=== PATIENT | male | born 1960 | race Caucasian/White ===

== ENCOUNTER 2016-11-11 17:36 | Emergency (ER) | payer BC, OTHER ==
[~2016-11-11] VITALS: Ht 175.3 cm; Wt 106.2 kg
[~2016-11-11 17:36] MED LIST: ALBU1AER9 INH; ATOM25CA PO; DICL-201 PO; LOSA50TA6 PO; LPT10 PO; OXYC1TAB3 PO; STR10 PO; TGR200 PO; TRAZ100T29 PO; [UNRECOGNIZED DRUG - CODE] PO
[2016-11-11 17:38] VITALS: TEMP 36.6; Ht 175.3 cm; Wt 106.2 kg
--- NOTE | 2016-11-11 18:18 | DIAGNOSTIC IMAGING REPORT ---
LUMBAR SPINE 5 VIEWS HISTORY: Trauma. Pain. LBP/tailbone pain s/p fall COMPARISON: None. FINDINGS: There is no fracture. No subluxation. Disc spaces are preserved. IMPRESSION: No fracture or subluxation within the lumbar spine. Electronically signed by: Augusto Squires M.D. 11/11/2016 6:16 PM Dictated Date/Time: 11/11/2016 6:15 PM
--- NOTE | 2016-11-11 18:19 | DIAGNOSTIC IMAGING REPORT ---
SACRUM COCCYX MIN 2 VIEWS CLINICAL HISTORY: LBP/tailbone pain s/p fall trauma COMPARISON STUDY: None FINDINGS: Nondisplaced cortical fracture sacrococcygeal junction. All remaining osseous structures are unremarkable. IMPRESSION: Nondisplaced cortical fracture sacrococcygeal junction Electronically signed by: Augusto Squires M.D. 11/11/2016 6:17 PM Dictated Date/Time: 11/11/2016 6:16 PM
[2016-11-11] MEDS ORDERED: OXYC1TAB3 PO (18:54)
[2016-11-11 18:59] VITALS: BP 151/104; PULSE 99; O2SAT 94
[2016-11-11] MEDS ORDERED: OXYCODONE IR HOME PACK PO ONE (19:00)
--- NOTE | 2016-11-11 19:04 | EMERGENCY ROOM VISIT NOTE ---
History First contact with patient: 17:40 Chief Complaint: FALL Stated Complaint: FELL ON TAILBONE History of Present Illness The patient is a 56 year old male who presents to the Emergency Room with complaints of elbow pain after he slipped and fell onto his kitchen floor approximately one half hour prior to arrival. The patient rates his discomfort an 8 out of 10. He denies any pain radiating down the legs or into the abdomen. He denies any prior history of lumbar spine, sacral or coccyx fractures. He has not noticed any bladder/bowel incontinence, saddle anesthesias or noticeable lower extremity weakness. Review of Systems 10 system review was performed and was negative except for pertinent positives and negatives as indicated in history of present illness Past Medical/Surgical History Medical Problems: (1) Abdominal pain (2) ADHD (attention deficit hyperactivity disorder) (3) Back pain (4) Bipolar disorder (5) Hyperlipidemia, Unspecified (6) Hypertension Nos (7) Low back pain (8) Lumbago (9) Nausea vomiting and diarrhea (10) Pain, dental (11) PTSD (post-traumatic stress disorder) Family History Heart disease Hypertension Social History Smoking Status: Current Every Day Smoker Alcohol Use: heavy Drug Use: none Marital Status: single Housing Status: lives alone Occupation Status: employed Current/Historical Medications Scheduled Atorvastatin (Atorvastatin Calcium), 10 MG PO HS Carbamazepine (Carbamazepine), 400 MG PO HS Losartan Potassium (Cozaar), 50 MG PO HS Thiothixene (Thiothixene), 2 MG PO HS Trazodone Hcl (Trazodone), 100 MG PO HS Scheduled PRN Albuterol Sulfate (Proair Hfa), 2 PUFFS INH QID PRN for Shortness of Breath Diclofenac (Voltaren), 75 MG PO BID PRN for Pain Oxycodone Ir (Roxicodone Ir), 1-2 TAB PO Q4H PRN for Pain Allergies Coded Allergies: No Known Allergies (Unverified , 11/11/16) Physical Exam Vital Signs Date Time Temp Pulse Resp B/P Pulse Ox O2 Delivery O2 Flow Rate FiO2 11/11/16 17:38 36.6 97 20 156/91 97 Room Air Physical Exam CONSTITUTIONAL: Healthy and well nourished. Alert and oriented X 3 with positive affect. Patient appears in mild discomfort from pain. HEENT: Normocephalic, atraumatic. Pupils equal, round and reactive. No epistaxis, subconjunctival hemorrhage or hemotympanum. NECK: Full active range of motion without discomfort. RESPIRATORY: Clear to auscultation bilaterally with no wheezing, crackles, rhonchi or stridor. CARDIOVASCULAR: Regular rate and rhythm with no murmurs, rubs or gallops. GASTROINTESTINAL: Bowel sounds present in all quadrants. Soft and nontender to palpation. The patient refused digital rectal exam to palpate the coccyx. MUSCULOSKELETAL: Examination shows generalized lower back tenderness to palpation of the central lumbar spine, paraspinous muscles and SI joints. Pelvis stable with rock. Negative logroll. Negative straight leg raise. Ankle plantar/dorsiflexion strength is 5 out of 5 and symmetric bilaterally. INTEGUMENTARY: No rash or other significant dermatologic conditions noted. NEUROLOGIC: Cranial nerves II-XII grossly intact. No focal neurologic deficits noted. Lower extremity deep tendon reflexes are 2+ and symmetric bilaterally. Medical Decision & Procedures ER Provider Diagnostic Interpretation: My interpretation of lumbar spine x-rays does not show any acute fracture or spondylolisthesis. Radiologist report was also reviewed with concurrence. My interpretation of sacrum and coccyx x-rays shows a cortical fracture at the sacrococcygeal junction. Radiologist report is as follows: SACRUM COCCYX MIN 2 VIEWS CLINICAL HISTORY: LBP/tailbone pain s/p fall trauma COMPARISON STUDY: None FINDINGS: Nondisplaced cortical fracture sacrococcygeal junction. All remaining osseous structures are unremarkable. IMPRESSION: Nondisplaced cortical fracture sacrococcygeal junction ED Course Patient history and physical exam were performed. Nurse's notes were reviewed. Signs were reviewed, showing an elevated blood pressure 156/91. The patient had gone to x-ray prior to my exam as I was called to see one of my prior patients. X-rays of the lumbar spine, sacrum and coccyx shows a sacrococcygeal fracture. Review of prior medical records shows that the patient is currently on a no narcotic prescription list from last year. I also reviewed the [place] Prescription Drug Monitoring Program, showing that the patient has also recently been in pain management under Dr. Ruano in [place]. It appears that he has been receiving prescriptions for OxyContin 15 mg and oxycodone 10 mg tablets , with his last prescription refill on 09/04/16. Without telling the patient about this prescription history, I ask what he is currently taking at home for his chronic pain. He reports that he no longer goes to the pain clinic in [place] because he lost his job at [employer], and cannot afford his visits and prescriptions from the pain clinic. He reports that he has an appointment this coming Sunday with his family doctor. He is requesting medication until he can discuss pain management with his family doctor at his appointment. Because the patient does have an acute fracture, I will provide a one-time home pack and prescription for OxyIR 5 mg, dispensed #24 with no refills. The patient is aware that he is currently on a no prescription treatment plan, and will seek further pain management from his PCP. The patient reports that he also has diclofenac at home that he can also take. He was encouraged to also apply ice to the lower back and pelvis. Avoid sitting for long periods of time. The patient was happy with plan of care, voiced understanding of all discharge instructions, refused any analgesics prior to discharge, and rated his pain a 7 out of 10. [facility] Drug Monitoring Program Search Results: patient reviewed within database, see additional documentation Impression Primary Impression: Sacrococcygeal fracture Additional Impression: Fall from slipping on slippery surface Departure Information Prescriptions Oxycodone Ir (Roxicodone Ir) 5 Mg Tab 1-2 TAB PO Q4H Y for Pain, #24 TAB For Initial Treatment Prov: Gutierrez Koo PA 11/11/16 Referrals Luz Smallwood C.R.N.PRhonda (PCP) Patient Instructions My [facility] Problem Qualifiers Additional Impression: Fall from slipping on slippery surface Encounter type: initial encounter Qualified Codes: W01.0XXA - Fall on same level from slipping, tripping and stumbling without subsequent striking against object, initial encounter
[2017-04-05] MEDS ORDERED: CARB200T PO (08:41)
[2017-04-05] MEDS ORDERED: OXYC-57 PO (08:41)
[2017-04-05] MEDS ORDERED: ALBU18002 INH (08:41)
[2017-04-05] MEDS ORDERED: FLUO0.0121 TOP (08:41)
[2017-04-05] MEDS ORDERED: METH5TAB85 PO (08:41)
[2017-04-05] MEDS ORDERED: HYDR25TA4 PO (08:41)
[2017-04-05] MEDS ORDERED: ZOLP5TAB6 PO (08:41)
== END 2016-11-11 19:06 | disposition home or self-care (01) ==
LOC: C.EDB 17:36 → C.EDD 19:06
DX: S32.10XA Unspecified fracture of sacrum, initial encounter for closed fracture (principal); S32.2XXA Fracture of coccyx, initial encounter for closed fracture; W01.0XXA Fall on same level from slipping, tripping and stumbling without subsequent striking against object, initial encounter; Y92.010 Kitchen of single-family (private) house as the place of occurrence of the external cause; E78.5 Hyperlipidemia, unspecified; I10 Essential (primary) hypertension; F90.9 Attention-deficit hyperactivity disorder, unspecified type; F31.9 Bipolar disorder, unspecified; F17.200 Nicotine dependence, unspecified, uncomplicated; Z79.899 Other long term (current) drug therapy; Z82.49 Family history of ischemic heart disease and other diseases of the circulatory system

== ENCOUNTER → 2017-04-05 | Outpatient (CLI) | payer OTHER ==
[~2017-04-05] VITALS: Ht 175.3 cm; Wt 129.7 kg
[~2017-04-05] MED LIST changes: +ALBU18002 INH; -ATOM25CA PO; +AZITTAB PO; +CARB200T PO; +FLUO0.0121 TOP; +HYDR25TA4 PO; +LACTATED RINGER'S 1000ML 1,000 ML IV SCH; +METH5TAB85 PO; +OXYC-57 PO; -STR10 PO; +ZOLP5TAB6 PO
[2017-04-05 08:41] VITALS: Ht 175.3 cm; Wt 129.7 kg
--- NOTE | 2017-04-05 09:12 | PAT Medication Instructions ---
Service Date Apr 05, 2017. Current Home Medication List Albuterol Sulfate (Proair Respiclick), 2 PUFF INH Q4 PRN for SOB/Wheezing Atorvastatin (Atorvastatin Calcium), 10 MG PO HS Carbamazepine (Tegretol), 200 MG PO BID Diclofenac (Voltaren), 75 MG PO BID PRN for Pain Fluocinolone Acetonide (Madeline-Smoothe/Fs Scalp), 1 DOSE TOP UD PRN for DERMATITIS Hydrochlorothiazide (Hctz), 25 MG PO QAM PRN for EDEMA Losartan Potassium (Cozaar), 50 MG PO HS Methamphetamine Hcl (Methamphetamine Hcl), 5 MG PO QID Oxycodone/Acetaminophen 5MG/325MG (Percocet 5MG/325MG), 1-2 TABLETS PO Q4H PRN for Pain Thiothixene (Thiothixene), 2 MG PO HS Trazodone Hcl (Trazodone), 100 MG PO HS Zolpidem Tartrate (Zolpidem Tartrate), 1 TAB PO HS PRN for Insomnia Medication Instructions For Your Scheduled Surgery - Hold the following medications 24 hours prior to surgery: Losartan Potassium (Cozaar), 50 MG PO HS Fluocinolone Acetonide (Madeline-Smoothe/Fs Scalp), 1 DOSE TOP UD PRN for DERMATITIS - Hold the following medications the morning of surgery: Methamphetamine Hcl (Methamphetamine Hcl), 5 MG PO QID Hydrochlorothiazide (Hctz), 25 MG PO QAM PRN for EDEMA Diclofenac (Voltaren), 75 MG PO BID PRN for Pain (otherwise okay to continue per surgeon) - Take the following medications the morning of surgery with a sip of water OTHERWISE NOTHING TO EAT OR DRINK AFTER MIDNIGHT: Oxycodone/Acetaminophen 5MG/325MG (Percocet 5MG/325MG), 1-2 TABLETS PO Q4H PRN for Pain (may take if needed up to 4 hours prior to surgery) Carbamazepine (Tegretol), 200 MG PO BID Albuterol Sulfate (Proair Respiclick), 2 PUFF INH Q4 PRN for SOB/Wheezing (use if needed; BRING TO HOSPITAL) - Take the following medications as scheduled the night before surgery: Thiothixene (Thiothixene), 2 MG PO HS Trazodone Hcl (Trazodone), 100 MG PO HS Zolpidem Tartrate (Zolpidem Tartrate), 1 TAB PO HS PRN for Insomnia Methamphetamine Hcl (Methamphetamine Hcl), 5 MG PO QID Oxycodone/Acetaminophen 5MG/325MG (Percocet 5MG/325MG), 1-2 TABLETS PO Q4H PRN for Pain Carbamazepine (Tegretol), 200 MG PO BID Atorvastatin (Atorvastatin Calcium), 10 MG PO HS Albuterol Sulfate (Proair Respiclick), 2 PUFF INH Q4 PRN for SOB/Wheezing If you have any questions please call us at [phone] or [phone] or [phone]
--- NOTE | 2017-04-05 10:05 | DIAGNOSTIC IMAGING REPORT ---
CHEST 2 VIEWS ROUTINE HISTORY: Preop. COMPARISON: Chest 06/27/2012. FINDINGS: The lungs are clear. Cardiac silhouette is top normal in size. No pleural effusions. No pneumothorax. IMPRESSION: No significant change compared to the prior study. No acute process. Electronically signed by: Cristhian Mosqueda M.D. 04/05/2017 10:04 AM Dictated Date/Time: 04/05/2017 9:59 AM
[2017-04-05 10:41] LABS: CALCIUM 9.7 mg/dl (8.5-10.1); CREATININE 1.1 mg/dl (0.60-1.40); POTASSIUM 3.6 mmol/L (3.5-5.1)
[2017-04-05 10:42] LABS: COMPLETE YES; EOS % 2.9 %; IG% 0.2 %; LYMPH % 21.4 %; LYMPH ABS # 1.42 K/uL (1.2-3.4); MEAN CELL VOLUME 96.2 fL (80-100); MEAN CORPUSCULAR HEMOGLOBIN 33.5 pg (25-34); MEAN CORPUSCULAR HGB CONC 34.8 g/dl (32-36); MEAN PLATELET VOLUME 10.2 fL (7.4-10.4); MONO % 7.7 %; NEUT % 67.8 %; PLATELET COUNT 212 K/uL (130-400); RED BLOOD COUNT 4.78 M/uL (4.7-6.1); WHITE BLOOD COUNT 6.65 K/uL (4.8-10.8)
== END | disposition home or self-care (01) ==
LOC: C.LAB 08:00 → EDSTATUS 04-17 11:00
PROVIDERS: ATTEND Surgery
DX: Z01.812 Encounter for preprocedural laboratory examination (principal); Z01.810 Encounter for preprocedural cardiovascular examination; D17.0 Benign lipomatous neoplasm of skin and subcutaneous tissue of head, face and neck

== ENCOUNTER 2017-04-16 11:04 | Emergency (ER) | payer OTHER ==
[~2017-04-16 11:04] MED LIST changes: -ALBU1AER9 INH; -AZITTAB PO; -LACTATED RINGER'S 1000ML 1,000 ML IV SCH; -OXYC1TAB3 PO; -TGR200 PO
[2017-04-16 11:27] VITALS: TEMP 37.3
[2017-04-16] MEDS ORDERED: ALBUT/IPRATROP 3MG/0.5MG NEB 3 ML VIAL INH STA (12:32)
--- NOTE | 2017-04-16 12:32 | EMERGENCY ROOM VISIT NOTE ---
History Report prepared by Merle: Joycelyn Duran Under the Supervision of: Dr. Vernon Torres M.D. First contact with patient: 12:11 Chief Complaint: RESPIRATORY PROBLEMS Stated Complaint: FLU Nursing Triage Summary: started sunday, dry cough, now has aching and congestion. non productive cough History of Present Illness The patient is a 57 year old male who presents to the Emergency Room with complaints of a persistent cough that began two days ago. The patient states that he first began coughing on Sunday noting that it is nonproductive. He additionally reports congestion and aches in his diaphragm and flanks. The patient states that he is a smoker and states that his cough is worsened with smoking. He states that he has tried using his inhaler at home without relief of his symptoms. The patient is unsure if he has had a fever. He denies any recent antibiotic use. The patient denies any recent fall or injury. He declines any IVs or labwork at this time. Source of History: patient Onset: two days ago Position: other (global) Quality: other (cough) Timing: other (persistent) Note: Associated Symptoms: aches in his diaphragm and flanks, congestion Review of Systems See HPI for pertinent positives & negatives. A total of 10 systems reviewed and were otherwise negative. Past Medical & Surgical Medical Problems: (1) Abdominal pain (2) ADHD (attention deficit hyperactivity disorder) (3) Back pain (4) Bipolar disorder (5) Hyperlipidemia, Unspecified (6) Hypertension Nos (7) Low back pain (8) Lumbago (9) Nausea vomiting and diarrhea (10) Pain, dental (11) PTSD (post-traumatic stress disorder) Family History Heart disease Hypertension Social History Smoking Status: Current Every Day Smoker Alcohol Use: heavy Drug Use: none Marital Status: single Housing Status: lives alone Occupation Status: employed Current/Historical Medications Scheduled Atorvastatin (Atorvastatin Calcium), 10 MG PO HS Azithromycin (Zithromax Z-Alden), 1 PKT PO UD Carbamazepine (Tegretol), 200 MG PO BID Losartan Potassium (Cozaar), 50 MG PO HS Methamphetamine Hcl (Methamphetamine Hcl), 5 MG PO QID Thiothixene (Thiothixene), 2 MG PO HS Trazodone Hcl (Trazodone), 100 MG PO HS Scheduled PRN Albuterol Sulfate (Proair Respiclick), 2 PUFF INH Q4 PRN for SOB/Wheezing Diclofenac (Voltaren), 75 MG PO BID PRN for Pain Fluocinolone Acetonide ([place]wood-Smoothe/Fs Scalp), 1 DOSE TOP UD PRN for DERMATITIS Hydrochlorothiazide (Hctz), 25 MG PO QAM PRN for EDEMA Oxycodone/Acetaminophen 5MG/325MG (Percocet 5MG/325MG), 1-2 TABLETS PO Q4H PRN for Pain Zolpidem Tartrate (Zolpidem Tartrate), 1 TAB PO HS PRN for Insomnia Allergies Coded Allergies: No Known Allergies (Unverified , 04/16/17) Physical Exam Vital Signs Date Time Temp Pulse Resp B/P (MAP) Pulse Ox O2 Delivery O2 Flow Rate FiO2 04/16/17 13:26 113 23 139/75 92 Room Air 04/16/17 11:50 Room Air 04/16/17 11:27 37.3 112 28 142/83 90 Room Air Physical Exam GENERAL: Patient is well appearing and in no acute distress. HEENT: No acute trauma, normocephalic atraumatic, mucous membranes moist, no nasal congestion, no scleral icterus. NECK: No stridor, no adenopathy, no meningismus, trachea is midline. LUNGS: Minimal dyspnea. Loud wheezing throughout on expiration. Sounds equal bilaterally. No rhonchi. HEART: Regular rate and rhythm. No murmurs, rubs, gallops appreciated. ABDOMEN: Soft, nontender, bowel sounds positive, no masses appreciated, no peritonitis. BACK: No midline tenderness, no CVA tenderness EXTREMITIES: Normal motion all extremities, no cyanosis, no edema. NEUROLOGIC: Alert and oriented, no acute motor or sensory deficits, no focal weakness, cranial nerves grossly intact. SKIN: No rash, no jaundice, no diaphoresis. Medical Decision & Procedures ER Provider Diagnostic Interpretation: X ray results are stated below per my interpretation and the radiologist's interpretation. CHEST 2 VIEWS ROUTINE HISTORY: 57 years-old Male cough acute cough COMPARISON: Chest radiograph 04/05/2017 TECHNIQUE: PA and lateral views of the chest FINDINGS: Cardiac silhouette is mildly enlarged. No pneumothorax, pleural effusion or focal airspace consolidation. No overt pulmonary edema. Bones appear grossly intact. IMPRESSION: No acute cardiopulmonary process. The above report was generated using voice recognition software. It may contain grammatical, syntax or spelling errors. Electronically signed by: Jorge Cowan M.D. 04/16/2017 12:32 PM Dictated Date/Time: 04/16/2017 12:31 PM Laboratory Results Test 04/16/17 12:20 Influenza Type A Antigen Neg for Influ A (NEG) Influenza Type B Antigen Neg for Influ B (NEG) Laboratory results as reviewed by me. Medications Administered Medications (Trade) Dose Ordered Sig/García Route Start Time Stop Time Status Last Admin Dose Admin Albuterol/ Ipratropium (Duoneb) 6 ml NOW STAT INH 04/16/17 12:32 04/16/17 12:33 DC 04/16/17 12:45 6 ML Azithromycin (Zithromax Tab) 500 mg NOW STAT PO 04/16/17 12:38 04/16/17 12:39 DC 04/16/17 12:45 500 MG Hydrocodone Bit/ Homatropine Methylb (Hycodan Elix Homepack 5/1.5MG/ 5ML) 1 homepack UD ONCE PO 04/16/17 12:45 04/16/17 12:46 DC 04/16/17 12:45 1 HOMEPACK ED Course 1227: The patient was evaluated in room C1B. A complete history and physical exam was performed. 1232: Ordered DuoNeb 6 ml INH. 1238: Ordered Azithromycin 500 mg PO. 1245: Ordered Hydrocodone Bit/Homatropine Methyl B 1 homepack PO. 1310: I reevaluated the patient and he is resting comfortably. I discussed the exam findings with him and I discussed the treatment plan. He verbalized complete understanding and agreement. He is ready to go home. Medical Decision Differential: Infectious, Reactive Airway Disease, Pneumonia, Pneumothorax, COPD , CHF, ACS, Pulmonary Embolism, MSK, GI, Dissection, amongst other etiologies entertained. 57 yr old male arrives with complaint of shortness of breath over the last few days. Clearly directing his own care/treatment. Clearly is with diffuse wheezing. With his asthma and smoking history and normal CXR this is clearly bronchitis. Given neb with vast improvement. He denies labs, declines steroids , declines further testing. Clearly has uncomfortable cough thus I gave him hycodan with understanding its restriction and after reviewing PDMP. I made it clear to him that he may worsen especially given his mildly low O2 sats to begin with. He does not have risk factors for PE and with other cause more likely I do not feel this is PE, though can not do Dimer as he declines labs. [place] Drug Monitoring Program Search Results: patient reviewed within database, no issues identified Medication Reconcilliation Current Medication List: was personally reviewed by me Impression Primary Impression: Bronchitis Scribe Attestation The scribe's documentation has been prepared under my direction and personally reviewed by me in its entirety. I confirm that the note above accurately reflects all work, treatment, procedures, and medical decision making performed by me. Departure Information Dispostion Home / Self-Care Prescriptions Azithromycin (ZITHROMAX Z-ALDEN) 250 Mg Tab 1 PKT PO UD, #1 PKT Prov: Vernon Torres M.D. 04/16/17 Forms HOME CARE DOCUMENTATION FORM, IMPORTANT VISIT INFORMATION Patient Instructions My [facility] Additional Instructions Your lung sounds were quite poor. There is a possibility this will not improve without steroids. Return if worsening breathing, chest pain, passing out, vomiting or other concerns. We are always here to help. Rest and avoid exertion over the next few days. Please follow up with your primary care provider in the next few days for a recheck. You have received a narcotic cough medication. These medications may cause drowsiness and should not be used with other sedative medications. Do not drive , drink alcohol, perform dangerous activities, nor make important decisions after taking these medications. [facility] use or inappropriate use may lead to addiction.
[2017-04-16] MEDS ORDERED: AZITHROMYCIN 250 MG TAB PO STA (12:38)
[2017-04-16] MEDS ORDERED: HYCODAN 60ML BOTTLE HOMEPACK PO ONE (12:45)
[2017-04-16] MEDS ORDERED: AZITTAB PO (13:12)
[2017-04-16 13:26] VITALS: BP 139/75; PULSE 113; O2SAT 92
== END 2017-04-16 13:27 | disposition home or self-care (01) ==
LOC: C.EDB 11:05 → C.EDC 13:27
DX: J40 Bronchitis, not specified as acute or chronic (principal); I10 Essential (primary) hypertension; F31.9 Bipolar disorder, unspecified; E78.5 Hyperlipidemia, unspecified; F90.9 Attention-deficit hyperactivity disorder, unspecified type; F17.200 Nicotine dependence, unspecified, uncomplicated; Z79.899 Other long term (current) drug therapy; Z82.49 Family history of ischemic heart disease and other diseases of the circulatory system

== ENCOUNTER 2017-09-05 19:21 | Emergency (ER) | payer OTHER ==
[2017-09-05 19:30] VITALS: TEMP 36.7; Ht 175.3 cm
[2017-09-05] MEDS ORDERED: XYLOCAINE 1%/SOD BICARB 20 ML VIAL INFIL STA (19:43)
[2017-09-05] MEDS ORDERED: OXYCODONE HCL IR 5 MG TAB (IMMEDIATE RELEASE) PO STA (20:17)
[2017-09-05] MEDS ORDERED: NZRSHM PO (21:29)
[2017-09-05 21:34] VITALS: BP 159/111; PULSE 75; O2SAT 95
--- NOTE | 2017-09-05 21:42 | DIAGNOSTIC IMAGING REPORT ---
RIGHT SECOND TOE 3 VIEWS CLINICAL HISTORY: Crushing injury. FINDINGS: 3 views of the right second toe are obtained. No prior studies are available for comparison at the time of dictation. The skeletal structures are well mineralized. There is a comminuted fracture through the tuft of the second distal phalanx with mildly distracted fragments. Overlying soft tissue edema is noted. No additional fracture is seen. The second metatarsophalangeal and interphalangeal joints are preserved. IMPRESSION: Comminuted fracture through the tuft of the second distal phalanx with distracted fragments. Electronically signed by: Yakov Velásquez M.D. 09/05/2017 9:41 PM Dictated Date/Time: 09/05/2017 9:40 PM
[2017-09-05] MEDS ORDERED: OXYCODONE IR HOME PACK PO STA (21:49)
[2017-09-05] MEDS ORDERED: CEPH500C PO (21:52)
[2017-09-05] MEDS ORDERED: OXYC1TAB3 PO (21:52)
[2017-09-05] MEDS ORDERED: CEPHALEXIN MONOHYDRATE 250 MG CAP PO STA (21:53)
--- NOTE | 2017-09-05 21:57 | EMERGENCY ROOM VISIT NOTE ---
ED Visit Note First contact with patient: 19:33 Chief Complaint: "Smashed toe" History of Present Illness: This patient is a 57-year-old male who presents to the Emergency Department via private vehicle for evaluation of their right second digit toe laceration. Patient sustained the laceration while in [employer] [place], when he sustained an injury of which a heavy object fell onto the right second toe just prior to arrival. He notes that the eminence was called in the region was wrapped. Once he got home the pain persisted which he now rates as a 9/10 and throbbing in nature. He does not think his tetanus is up-to-date. They report a moderate amount of bleeding initially. They deny any numbness or tingling into the distal extremity. Medications: As noted below Allergies: None PMH: No pertinent SHx: Patient lives locally. ROS: All pertinent positive and negative review of systems are appropriately documented in the History of Present Illness. Physical Exam: VITAL SIGNS - Vital signs and nursing notes were reviewed. Stable. Hypertensive. GENERAL -57-year-old male appearing his stated age who is in no acute distress. Communicates well with provider and answers questions appropriately. SKIN - There is a 1 cm long laceration noted just behind the cuticle on the R 2nd toe and a 0.3 cm laceration at the L medial border of the R 2nd toe. The edges gape apart with traction. No foreign bodies appreciated. Upon further examination there are no deep structures including vessel, tendon, or bony structures appreciated. There is minimal active bleeding noted. MUSCULOSKELETAL - Laceration as described above. +5/5 strength appreciated of the affected digit. Full range of motion of the affected digit. NEUROLOGIC - Spinothalamic tract was found to be intact with ability to discriminate sharp versus dull sensation. No sensory defects of the dorsal column were appreciated utilizing light touch for evaluation. VASCULAR - Capillary refill was brisk. IMAGING: RIGHT SECOND TOE 3 VIEWS CLINICAL HISTORY: Crushing injury. FINDINGS: 3 views of the right second toe are obtained. No prior studies are available for comparison at the time of dictation. The skeletal structures are well mineralized. There is a comminuted fracture through the tuft of the second distal phalanx with mildly distracted fragments. Overlying soft tissue edema is noted. No additional fracture is seen. The second metatarsophalangeal and interphalangeal joints are preserved. IMPRESSION: Comminuted fracture through the tuft of the second distal phalanx with distracted fragments. Electronically signed by: Yakov Velásquez M.D. 09/05/2017 9:41 PM Dictated Date/Time: 09/05/2017 9:40 PM ED Course: Patient was seen and evaluated by myself. Risks and benefits of performing primary wound closure versus no repair were discussed with the patient who verbalizes understanding. Verbal consent was obtained prior to performing the procedure. 4 cc of 1% buffered lidocaine was used to perform a digital block of the right second toe digit. The wound was cleansed and prepped in the typical sterile fashion utilizing normal saline and Betadine. The wound was sterilely draped. Once proper anesthetization was established, the wound was further examined and demonstrated no deep involvement however the x-ray that was obtained does reveal a fracture around this region. There is either a small open fracture which is not appreciable on exam or there is a soft tissue injury with deeper fracture. For this region, I did use a Pulsavac irrigation system to thoroughly irrigate the system with greater than 1 L of normal saline. This was also with Betadine. Patient tolerated this very well. I do believe that tacking the nail back down at the cuticle region to help better align the toe would be best. The wound was copiously irrigated with normal saline and Betadine. The wound was closed using 3 simple, 5-0 nylon sutures with the wound edges being well approximated. Patient tolerated the procedure well. No complications were met. The wound was cleansed and dressed with a Xeroform bulky dressing pending follow-up with orthopedics. He was given p.o. Keflex here, as well as oxycodone and a small prescription for home secondary to the pain. No red flags in the [place] drug monitoring system patient received their Adacel vaccination. Patient educated on worrisome symptoms for return visit to the Emergency Department. Patient discharged to home in good condition. In the evaluation and treatment of this patient, the following differential diagnoses were considered: Toe Fracture, Toe Sprain, Turf Toe, Gout. Problem List Medical Problems: (1) Abdominal pain Status: Resolved (2) ADHD (attention deficit hyperactivity disorder) Status: Chronic (3) Back pain Status: Resolved (4) Bipolar disorder Status: Chronic (5) Hyperlipidemia, Unspecified Status: Chronic (6) Hypertension Nos Status: Chronic (7) Low back pain Status: Resolved (8) Lumbago Status: Chronic (9) Nausea vomiting and diarrhea Status: Resolved (10) Pain, dental Status: Resolved (11) PTSD (post-traumatic stress disorder) Status: Chronic Current/Historical Medications Scheduled Atorvastatin (Lipitor), 10 MG PO HS Carbamazepine (Tegretol), 200 MG PO BID Cephalexin Monohydrate (Keflex), 500 MG PO TID Ketoconazole (Ketoconazole), 1 APPLN PO UD Losartan Potassium (Cozaar), 50 MG PO HS Methamphetamine Hcl (Methamphetamine Hcl), 5 MG PO QID Thiothixene (Thiothixene), 2 MG PO HS Trazodone Hcl (Trazodone), 100 MG PO HS Scheduled PRN Albuterol Sulfate (Proair Respiclick), 2 PUFF INH Q4 PRN for SOB/Wheezing Diclofenac (Voltaren), 75 MG PO BID PRN for Pain Fluocinolone Acetonide (Premont-Smoothe/Fs Scalp), 1 DOSE TOP UD PRN for DERMATITIS Hydrochlorothiazide (Hctz), 25 MG PO QAM PRN for EDEMA Oxycodone Ir (Roxicodone Ir), 1-2 TAB PO Q6 PRN for Pain Oxycodone/Acetaminophen 5MG/325MG (Percocet 5MG/325MG), 1-2 TABLETS PO Q4H PRN for Pain Zolpidem Tartrate (Zolpidem Tartrate), 1 TAB PO HS PRN for Insomnia Allergies Coded Allergies: No Known Allergies (Unverified , 04/16/17) Vital Signs Date Time Temp Pulse Resp B/P (MAP) Pulse Ox O2 Delivery O2 Flow Rate FiO2 09/05/17 21:34 75 18 159/111 95 Room Air 09/05/17 19:30 36.7 92 20 179/118 96 Room Air Medications Administered Medications (Trade) Dose Ordered Sig/García Route Start Time Stop Time Status Last Admin Dose Admin Oxycodone HCl (Roxicodone Immediate Rel Tab) 5 mg NOW STAT PO 09/05/17 20:17 09/05/17 20:18 DC 09/05/17 20:41 5 MG Oxycodone HCl (Roxicodone Immediate Rel 5MG Home Pack) 1 homepack UD STAT PO 09/05/17 21:49 09/05/17 21:51 DC 09/05/17 21:53 1 HOMEPACK Cephalexin Monohydrate (Keflex Cap) 500 mg NOW STAT PO 09/05/17 21:53 09/05/17 21:55 DC 09/05/17 22:02 500 MG Diphtheria/ Pertussis/Tetanus Vacc (Adacel Inj) 0.5 ml ONCE ONCE IM. 09/05/17 22:00 09/05/17 22:01 DC 09/05/17 22:02 0.5 ML Departure Information Dispostion Home / Self-Care Condition GOOD Prescriptions Cephalexin Monohydrate (Keflex) 500 Mg Cap 500 MG PO TID for 7 Days, #21 CAP Prov: Omkar Tse PA-C 09/05/17 Oxycodone Ir (Roxicodone Ir) 5 Mg Tab 1-2 TAB PO Q6 Y for Pain, #10 TAB For Initial Treatment Prov: Omkar Tse PA-C 09/05/17 Referrals No Doctor, Assigned (PCP) Ervin Barrow D.O. Patient Instructions My [facility] Additional Instructions Discharge Instructions: You have received 3 sutures on your toe which is fractures. These sutures are NOT dissolvable and WILL need to be removed by a health care provider in 14 days. You can return to the Emergency Department or contact your Primary Care Provider to have the sutures removed. Keflex 500 mg every 8 hours for 7 days to help prevent infection of your toe wound. Oxycodone immediate release 1 tablet every 6 hours for pain. This is only for severe pain. Please no driving with this. Please be advised other medications that you take can make the effects of this increased. Please start with 1 tablet and identify how your pain and response is to this medication. Please wear the splint for comfort until the sutures are removed. Please call orthopedics first thing tomorrow morning. It is Dr. Barrow. This is a scheduled follow-up as soon as possible for your fracture and laceration. Proper wound care is essential for adequate wound healing and infection prevention. You can shower and clean the wound with soap and water. Do not scour over the wound, pat dry with a towel. Do not submerse the wound (i.e. bathe or dish wash) until the sutures have been removed. You can use an antibiotic ointment with a dressing over the wound for the next 3-4 days ( yellow gauze and wrap) use crutches and splint until seen by orthopedics. After this time you may leave the wound dry and open to the air. If crust develops over the wound you can use a Q-tip to apply a 1:1 peroxide:water solution to clean the wound. Look for signs of infection of the wound including: increased pain, swelling, foul discharge, streaking, or increased temperature. If any of these are noticed you should return to the Emergency Department for further assessment and treatment. As with any laceration you may have received nerve damage to the surrounding tissues. This damage may or may not be permanent. You should keep the area covered with sunscreen for the first 6 months to 1 year when at risk for exposure to help minimize scarring. You can also use scar reducing creams or Vitamin E oil to help minimize scarring. For pain control, you can use the following [id number] medicines: - Regular strength (325mg/tab) Tylenol (acetaminophen) 2 tabs every 4-6 hours as needed. Do not exceed 12 tablets in a 24 hour period. Avoid taking more than 3 grams (3000 mg) of Tylenol per day. This includes any other sources of acetaminophen you may take on a regular basis. - Regular strength (200 mg/tab) Advil (ibuprofen) 1-2 tabs every 4-6 hours as needed. Do not exceed a dose of 3200 mg per day. Return to the emergency department if your symptoms worsen despite treatment course outlined above.
[2017-09-05] MEDS ORDERED: DIPHTHERIA/TETANUS/PERTUSSIS 0.5 ML SYR/VIAL IM. ONE (22:00)
== END 2017-09-05 22:04 | disposition home or self-care (01) ==
LOC: C.EDB 19:22 → C.EDD 22:04
DX: S92.531A Displaced fracture of distal phalanx of right lesser toe(s), initial encounter for closed fracture (principal); S91.114A Laceration without foreign body of right lesser toe(s) without damage to nail, initial encounter; W20.8XXA Other cause of strike by thrown, projected or falling object, initial encounter; Y92.513 Shop (commercial) as the place of occurrence of the external cause; I10 Essential (primary) hypertension; F31.9 Bipolar disorder, unspecified; F90.9 Attention-deficit hyperactivity disorder, unspecified type; Z79.899 Other long term (current) drug therapy

== ENCOUNTER 2018-02-09 10:22 | Emergency (ER) | payer OTHER ==
[~2018-02-09] VITALS: Ht 175.3 cm; Wt 133.6 kg
[~2018-02-09 10:22] MED LIST changes: +NZRSHM PO; +OXYC-90 PO
[2018-02-09 10:33] VITALS: TEMP 36.9; Ht 175.3 cm; Wt 133.6 kg
[2018-02-09] MEDS ORDERED: KETOROLAC TROMETHAMINE 60 MG/2 ML VIAL IM STA (11:24)
[2018-02-09] MEDS ORDERED: MELO-83 PO (11:34)
[2018-02-09 11:43] VITALS: BP 163/91; PULSE 85; O2SAT 95
--- NOTE | 2018-02-09 17:35 | EMERGENCY ROOM VISIT NOTE ---
ED Visit Note First contact with patient: 10:57 CHIEF COMPLAINT: Left hand pain This 57-year-old white male patient complains of moderate constant left hand pain that developed last night while opening a bottle. He states it was difficult to open and he believes something tore in his palm. He was at the [facility]. He states the pain continues. He is requesting pain medication. He did try a tablet of diclofenac last night without improvement. No other treatment. No prior history of hand injury. The pain is worse with any movement of the fingers. No laceration, no numbness or tingling. No other injury. Left hand dominant. REVIEW OF SYSTEM: HEENT: No dizziness, visual problems, hearing loss, or tinnitus. There is no difficulty swallowing and no oral lesions are present. PULMONARY: No cough, shortness of breath, sputum production or hemoptysis. CARDIOVASCULAR: No chest pain, palpitations, shortness of breath or peripheral edema. GASTROINTESTINAL: No diarrhea, constipation, nausea, vomiting, or abdominal pain. GENITOURINARY: No dysuria, frequency, urgency or nocturia. NEUROLOGIC: No weakness, muscle tenderness. No history of chronic headaches. MUSCULOSKELETAL: No history of joint tenderness/swelling. Positive history of arthritis and arthralgias. SKIN: No rashes or lesions. PSYCHIATRIC: Positive history of depression, bipolar disorder, PTSD, and ADHD. ENDOCRINE: No history of diabetes, thyroid disorders, or abnormal hair growth. PMH: Significant for depression, ADHD, bipolar disorder, PTSD. Hypertension, elevated cholesterol, GERD, chronic back pain. Family history: Noncontributory. SOCIAL HISTORY: Patient lives at home. Current medications: Reviewed and filed in patient's chart Allergies: NKDA PHYSICAL EXAM: Vital Signs: Reviewed Nurse's notes. Afebrile. MENTAL STATUS: Alert and oriented. General: Well-developed, well-nourished, sitting in a chair. Skin: Warm and dry with good turgor. No rashes or lesions. No ecchymosis or erythema. The patient is not diaphoretic. No abrasions. No edema. Musculoskeletal: Left hand evaluation reveals no obvious asymmetry or deformity. He has intact motor function to each of the digits of the left hand. FDS and FDP function were assessed on each finger individually and found to be intact with good strength. Normal extension against resistance to all fingers. He has discomfort with palpation over the center of his palm as well as at the base of the thenar eminence. No palpable defect in the thenar eminence. Thumb circumduction and opposition are intact though this does increase his pain. No pain with palpation over the dorsum of the hand or wrist. Full range of motion of the wrist though this does cause pain in the thenar eminence. No palpable defect in the palm of the hand. Neurologic: Gross sensation is intact across the wrist, hand, and each of the digits, by soft touch. Peripheral pulses are 2+. Capillary refill is equal for each of the fingers. EMERGENCY DEPARTMENT COURSE: Patient was offered a wrist splint extending to the fingers. He declined. Option of compression wrap was also discussed. He declined. He states he will perform gentle motion and hope that it resolves. He did request pain medication several times. He already tried Voltaren. Prescription was provided for meloxicam 15 mg to be used once daily for the next several days until pain resolves. I did offer an injection of Toradol. He was in agreement. He was given 60 mg IM. DIAGNOSIS: Left hand strain DISCHARGE INSTRUCTIONS & TREATMENT: Patient was educated regarding today's findings. Conservative care measures were discussed. Ice and elevate frequently times 3 days, then use moist heat. Tylenol 650 mg every 6 hours if needed for breakthrough pain. Follow-up with his PCP for a physical therapy referral if symptoms persist. Return to the ED for any acute worsening of symptoms. He was reassured that I do not suspect tendon rupture or fracture at this time. Problem List Medical Problems: (1) Abdominal pain Status: Resolved (2) ADHD (attention deficit hyperactivity disorder) Status: Chronic (3) Back pain Status: Resolved (4) Bipolar disorder Status: Chronic (5) Hyperlipidemia, Unspecified Status: Chronic (6) Hypertension Nos Status: Chronic (7) Low back pain Status: Resolved (8) Lumbago Status: Chronic (9) Nausea vomiting and diarrhea Status: Resolved (10) Pain, dental Status: Resolved (11) PTSD (post-traumatic stress disorder) Status: Chronic Current/Historical Medications Scheduled Atorvastatin (Lipitor), 10 MG PO HS Carbamazepine (Tegretol), 200 MG PO BID Ketoconazole (Ketoconazole), 1 APPLN PO UD Losartan Potassium (Cozaar), 50 MG PO HS Meloxicam (Meloxicam), 1 TAB PO DAILY Methamphetamine Hcl (Methamphetamine Hcl), 5 MG PO QID Thiothixene (Thiothixene), 2 MG PO HS Trazodone Hcl (Trazodone), 100 MG PO HS Scheduled PRN Albuterol Sulfate (Proair Respiclick), 2 PUFF INH Q4 PRN for SOB/Wheezing Diclofenac (Voltaren), 75 MG PO BID PRN for Pain Fluocinolone Acetonide ([place]wen-Smoothe/Fs Scalp), 1 DOSE TOP UD PRN for DERMATITIS Hydrochlorothiazide (Hctz), 25 MG PO QAM PRN for EDEMA Oxycodone Ir (Roxicodone Ir), 1-2 TAB PO Q6 PRN for Pain Oxycodone/Acetaminophen 5MG/325MG (Percocet 5MG/325MG), 1-2 TABLETS PO Q4H PRN for Pain Zolpidem Tartrate (Zolpidem Tartrate), 1 TAB PO HS PRN for Insomnia Allergies Coded Allergies: No Known Allergies (Unverified , 02/09/18) Vital Signs Date Time Temp Pulse Resp B/P (MAP) Pulse Ox O2 Delivery O2 Flow Rate FiO2 02/09/18 11:43 85 18 163/91 95 02/09/18 10:33 36.9 88 20 134/79 95 Room Air Medications Administered Medications (Trade) Dose Ordered Sig/García Route Start Time Stop Time Status Last Admin Dose Admin Ketorolac Tromethamine (Toradol Inj) 60 mg NOW STAT IM 02/09/18 11:24 02/09/18 11:25 DC 02/09/18 11:30 60 MG Departure Information Impression Primary Impression: Strain of left hand and finger Dispostion Home / Self-Care Condition GOOD Prescriptions Meloxicam (Meloxicam) 15 Mg Tab 1 TAB PO DAILY, #10 TAB Prov: Saad Yee,P.A. 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
== END 2018-02-09 11:40 | disposition home or self-care (01) ==
LOC: C.EDB 10:23 → C.EDD 11:40
DX: S66.912A Strain of unspecified muscle, fascia and tendon at wrist and hand level, left hand, initial encounter (principal); X50.9XXA Other and unspecified overexertion or strenuous movements or postures, initial encounter; F90.9 Attention-deficit hyperactivity disorder, unspecified type; F31.9 Bipolar disorder, unspecified; F32.9 Major depressive disorder, single episode, unspecified; I10 Essential (primary) hypertension; E78.5 Hyperlipidemia, unspecified; F43.10 Post-traumatic stress disorder, unspecified; Z79.899 Other long term (current) drug therapy

== ENCOUNTER 2019-12-19 09:14 | Observation (INO) ==
--- NOTE | 2019-12-19 09:49 | Emergency Department Note ---
History of Present Illness General Chief complaint: Chest Pain Stated complaint: CHEST PAIN, BACK INFECTION Time Seen by Provider: 12/19/19 09:36 Source: patient Mode of arrival: ambulatory Limitations: no limitations History of Present Illness This patient comes in complaining of chest pain off and on for the last 3 days. He is also had pain in his left shoulder blade where he thinks he has a back infection. He is not been on antibiotics for it. It hurts. He does have chronic back issues as well. He does have multiple cardiac risk factors including family history, hypertension, diabetes, hypercholesteremia, smoking. He has had a cough which is chronic but worse lately he thinks he has some sputum but he is unsure of what color. The pain does go down his left arm at times. He has been nauseated at times. No known exposure to COVID. No fall or trauma. No blood or melena in his stool. He is not on any blood thinners. Home Medications Home Medications Medication Instructions Recorded Confirmed Type ProAir RespiClick 2 inh INHALATION Q4H PRN 06/16/18 12/19/19 History atorvastatin 10 mg PO HS 06/16/18 12/19/19 History hydrochlorothiazide 25 mg PO QAM 06/16/18 12/19/19 History trazodone 100 mg PO HS 06/16/18 12/19/19 History carbamazepine [Tegretol] 200 mg PO BID 09/23/18 12/19/19 History perphenazine 4 mg PO DAILY PRN 10/14/18 12/19/19 History hydroxyzine HCl 25 mg PO DAILY PRN 12/22/18 12/19/19 History triamcinolone acetonide 0.1 % 1 appln TOP BID #15 gm 09/26/19 12/19/19 Rx topical cream fluticasone furoate-vilanterol 1 ea INHALATION DAILY 11/16/19 12/19/19 History [Breo Ellipta] methylphenidate HCl [Ritalin] 20 mg PO QAM 11/16/19 12/19/19 History diclofenac sodium 75 mg 75 mg PO BID PRN #60 tab 11/26/19 12/19/19 Rx tablet,delayed release fluocinonide 0.05 % topical 1 appln TOP BID 12/19/19 12/19/19 History solution losartan [Cozaar] 50 mg PO HS 12/19/19 12/19/19 History metformin 500 mg PO QAM 12/19/19 12/19/19 History Allergies Allergy/AdvReac Type Severity Reaction Status Date / Time No Known Allergies Allergy Verified 12/19/19 11:54 Past Med/Surg History Medical History ADHD Anxiety Arthritis Bipolar disorder Chronic back pain History of alcohol abuse Hyperlipidemia Hypertension (Chronic) Lumbago without sciatica (Chronic) Morbid obesity Poor historian Surgical History History of tonsillectomy Social History (Updated 12/19/19 @ 12:37 by Nathalie Vasquez DO) Preferred Language: Icelandic Communication Ability: Effective Visual Impairment: No Limitations Hearing Ability: Normal Director Traffic And Planning Required: No Beliefs That Will Affect Care: None Current Living Situation: Alone current occupational status: disabled Feels Safe at Home: Yes Smoking Status: Current every day smoker Tobacco Type: cigarettes ; Cigarettes Per Day: 20 ; Second Hand Exposure: No ; Hx Alcohol Use: No Hx Substance Use: No Dental Care, Regularly: Yes Physical Activity Frequency: Does not Exercise Review of Systems A total of 10 systems reviewed and were otherwise negative General: Well developed well nourished in no acute distress, breathing comfortably on room air. Normal speech. Answers questions appropriately but vaguely and is a poor historian HEENT: Normal cephalic atraumatic. Pupils are equal round and reactive to light. Extraocular movements are intact. Oropharynx is pink with moist mucous membranes. No swelling of the mouth lips or tongue. Neck: Supple with a midline trachea. No meningeal signs or stiffness, no JVD or bruits. No Stridor. Chest: Clear to auscultation bilaterally. No wheezes or rhonchi. No increased work of breathing. Heart: Regular rate and rhythm without murmurs or gallops. Abdomen: Soft nontender, nondistended without rebound guarding or rigidity. Extremities: No cyanosis clubbing or edema. No calf tenderness or assymetry Spine/Back. Non tender to palpation. No CVA tenderness. There is an indurated area near his left shoulder blade that is tender but there is no fluctuance or expressible pus. It is not signifcantly red or warm Skin: Good turgor without rashes. Neurologic exam: Cranial nerves two through 12 are intact. Motor and sensation are intact and symmetrical throughout. Physical Exam Vital Signs Vital Signs - 24 hr 12/19/19 09:19 12/19/19 09:29 12/19/19 09:30 Temperature 37 C Temperature Source Oral Pulse Rate 99 H 93 H 90 Pulse Rhythm Regular Pulse Strength Normal Respiratory Rate 22 17 19 Respiratory Effort / Characteristics Non-Labored Spontaneous Respiratory Depth Normal Respiratory Pattern Regular Blood Pressure 126/73 Blood Pressure Mean 90 Blood Pressure Position Sitting Pulse Oximetry 94 Oxygen Delivery Method Room Air Sepsis Recent Fever Within 48 Hours No Sepsis Action Taken by Nursing No Action Required 12/19/19 09:49 12/19/19 10:00 12/19/19 10:07 Temperature Temperature Source Pulse Rate 84 Pulse Rhythm Pulse Strength Respiratory Rate 14 Respiratory Effort / Characteristics Non-Labored Respiratory Depth Normal Respiratory Pattern Blood Pressure Blood Pressure Mean Blood Pressure Position Pulse Oximetry Oxygen Delivery Method Room Air Sepsis Recent Fever Within 48 Hours Sepsis Action Taken by Nursing 12/19/19 10:24 12/19/19 10:30 12/19/19 10:31 Temperature Temperature Source Pulse Rate 83 91 H 90 Pulse Rhythm Pulse Strength Respiratory Rate 15 25 H 14 Respiratory Effort / Characteristics Respiratory Depth Respiratory Pattern Blood Pressure 127/81 120/70 Blood Pressure Mean 96 88 Blood Pressure Position Pulse Oximetry Oxygen Delivery Method Sepsis Recent Fever Within 48 Hours Sepsis Action Taken by Nursing 12/19/19 11:14 12/19/19 11:46 12/19/19 11:47 Temperature Temperature Source Pulse Rate 94 H 90 89 Pulse Rhythm Pulse Strength Respiratory Rate 13 24 Respiratory Effort / Characteristics Respiratory Depth Respiratory Pattern Blood Pressure 134/84 Blood Pressure Mean 96 Blood Pressure Position Pulse Oximetry Oxygen Delivery Method Sepsis Recent Fever Within 48 Hours Sepsis Action Taken by Nursing 12/19/19 12:02 Temperature Temperature Source Pulse Rate Pulse Rhythm Pulse Strength Respiratory Rate Respiratory Effort / Characteristics Respiratory Depth Respiratory Pattern Blood Pressure 164/113 H Blood Pressure Mean 145 Blood Pressure Position Pulse Oximetry Oxygen Delivery Method Sepsis Recent Fever Within 48 Hours Sepsis Action Taken by Nursing General: Well developed well nourished not ill-appearing middle-age male who appears in no acute distress, breathing comfortably on room air. Normal speech HEENT: Normal cephalic atraumatic. Pupils are equal round and reactive to light. Extraocular movements are intact. Oropharynx is pink with moist mucous membranes. No swelling of the mouth lips or tongue. Neck: Supple with a midline trachea. No meningeal signs or stiffness, no JVD or bruits. No Stridor. Chest: Clear to auscultation bilaterally. No wheezes or rhonchi. No increased work of breathing. Heart: Regular rate and rhythm without murmurs or gallops. Abdomen: Soft nontender, nondistended without rebound guarding or rigidity. Extremities: No cyanosis clubbing or edema. No calf tenderness or assymetry Spine/Back. Non tender to palpation. No CVA tenderness. He has an area in the left thoracic back that is tender and indurated is not significantly red. There is no drainable pus. I think is localized folliculitis likely. Skin: Good turgor without rashes. Neurologic exam: Cranial nerves two through 12 are intact. Motor and sensation are intact and symmetrical throughout. Course Administered Medications Cephalexin HCl (Keflex) 750 mg PO TID [facility] Stop: 12/26/19 15:59 Last Admin: 12/19/19 16:42 Dose: 750 mg Documented by: [id number] Miscellaneous (Order Awaiting Action) 1 ea N/A QS TRUDY Stop: 01/18/20 15:59 Last Admin: 12/19/19 16:43 Dose: Not Given Documented by: [id number] Nicotine (Nicoderm Cq) 21 mg TD QAM TRUDY Stop: 01/18/20 15:59 Last Admin: 12/19/19 16:42 Dose: 21 mg Documented by: [id number] Discontinued Medications Al Hydrox/Mg Hydrox/Simethicone () Confirm Administered Dose 1 dose PO .STK-MED ONE Stop: 12/19/19 13:44 Last Admin: 12/19/19 13:44 Dose: Not Given Documented by: [id number] Al Hydrox/Mg Hydrox/Simethicone 18 ml/ Lidocaine HCl 6 ml/ BARCODE IDENTIFIER 1 ea 0 ml PO ONE ONE Stop: 12/19/19 12:23 Last Admin: 12/19/19 13:44 Dose: 24 ml Documented by: [id number] Medical Decision Making Differential Diagnosis Acute coronary syndrome, pneumonia, CHF, musculoskeletal, infection, abscess, CO VID, sepsis, PE, aortic pathology Medical Records Attestation: I reviewed the patient's medical records. Home Medications Current Medication List: was personally reviewed by me Laboratory Data Attestation: I reviewed the patient's lab results. Result diagrams: 12/19/19 10:20 12/19/19 10:20 Lab Results 12/19/19 12/19/19 12/19/19 Range/Units 10:15 10:15 10:20 WBC 13.05 H (4.8-10.8) K/uL RBC 4.07 L (4.7-6.1) M/uL Hgb 13.8 L (14.0-18.0) g/dL Hct 39.6 L (42-52) % MCV 97.3 (80-100) fL MCH 33.9 (25-34) pg MCHC 34.8 (32-36) g/dL RDW Std Deviation 51.0 H (36.4-46.3) fL RDW Coeff of Deanna 14.2 (11.5-14.5) % Plt Count 166 (130-400) K/uL MPV 10.7 H (7.4-10.4) fL Immature Gran % (Auto) 0.3 % Neut % (Auto) 81.0 % Lymph % (Auto) 9.3 % [place] % (Auto) 8.0 % Eos % (Auto) 1.3 % Baso % (Auto) 0.1 % Neut # (Auto) 10.57 H (1.4-6.5) K/uL Lymph # (Auto) 1.21 (1.2-3.4) K/uL [place] # (Auto) 1.05 H (0.11-0.59) K/uL Eos # (Auto) 0.17 (0-0.5) K/uL Baso # (Auto) 0.01 (0-0.2) K/uL Immature Gran # (Auto) 0.04 H (0.00-0.02) K/uL PT (9.0-12.0) Seconds INR (0.9-1.1) APTT (21.0-31.0) Seconds PTT Ratio Sodium (136-145) mmol/L Potassium (3.5-5.1) mmol/L Chloride (98-107) mmol/L Carbon Dioxide (21-32) mmol/L Anion Gap (3-11) BUN (7-18) mg/dl Creatinine (0.6-1.4) mg/dl Est Cr Clr Drug Dosing Est GFR ( Amer) Est GFR (Non-Af Amer) BUN/Creatinine Ratio (10-20) Glucose (70-99) mg/dl Calcium (8.5-10.1) mg/dl Total Bilirubin (0.2-1) mg/dl AST (15-37) U/L ALT (12-78) U/L Alkaline Phosphatase (45-117) U/L Troponin I (0-0.045) ng/ml Total Protein (6.4-8.2) gm/dl Albumin (3.4-5.0) gm/dl Globulin (2.5-4.0) gm/dl Albumin/Globulin Ratio (0.9-2) Lipase (73-393) U/L COVID-19 PCR NEGATIVE (Negative) SARS-CoV-2 RNA (RT-PCR) Cancelled 12/19/19 12/19/19 Range/Units 10:20 10:20 WBC (4.8-10.8) K/uL RBC (4.7-6.1) M/uL Hgb (14.0-18.0) g/dL Hct (42-52) % MCV (80-100) fL MCH (25-34) pg MCHC (32-36) g/dL RDW Std Deviation (36.4-46.3) fL RDW Coeff of Deanna (11.5-14.5) % Plt Count (130-400) K/uL MPV (7.4-10.4) fL Immature Gran % (Auto) % Neut % (Auto) % Lymph % (Auto) % [place] % (Auto) % Eos % (Auto) % Baso % (Auto) % Neut # (Auto) (1.4-6.5) K/uL Lymph # (Auto) (1.2-3.4) K/uL [place] # (Auto) (0.11-0.59) K/uL Eos # (Auto) (0-0.5) K/uL Baso # (Auto) (0-0.2) K/uL Immature Gran # (Auto) (0.00-0.02) K/uL PT 10.3 (9.0-12.0) Seconds INR 1.0 (0.9-1.1) APTT 29.7 (21.0-31.0) Seconds PTT Ratio 1.1 Sodium 129 L (136-145) mmol/L Potassium 4.0 (3.5-5.1) mmol/L Chloride 97 L (98-107) mmol/L Carbon Dioxide 23 (21-32) mmol/L Anion Gap 9.0 (3-11) BUN 12 (7-18) mg/dl Creatinine 1.18 (0.6-1.4) mg/dl Est Cr Clr Drug Dosing Not Reportable Est GFR ( Amer) 77.8 Est GFR (Non-Af Amer) 67.1 BUN/Creatinine Ratio 9.7 L (10-20) Glucose 294 H (70-99) mg/dl Calcium 9.2 (8.5-10.1) mg/dl Total Bilirubin 0.4 (0.2-1) mg/dl AST 10 L (15-37) U/L ALT 25 (12-78) U/L Alkaline Phosphatase 54 (45-117) U/L Troponin I < 0.015 (0-0.045) ng/ml Total Protein 7.2 (6.4-8.2) gm/dl Albumin 2.9 L (3.4-5.0) gm/dl Globulin 4.3 H (2.5-4.0) gm/dl Albumin/Globulin Ratio 0.7 L (0.9-2) Lipase 105 (73-393) U/L COVID-19 PCR (Negative) SARS-CoV-2 RNA (RT-PCR) Imaging Data Attestation: I personally reviewed and interpreted this imaging study as follows: My Impression: Chest x-ray: Cardiomegaly with some mild central vascular congestion but no overt CHF. No new pneumothorax seen ECG Data Attestation: I personally reviewed and interpreted this ECG as follows: Indication: + chest pain and + SOB/dyspnea Rate (beats per minute): 87 Rhythm: + normal sinus ECG Intervals/blocks: + Normal QRS, + Normal QT and + Normal [place] ECG [place]: + Normal ECG ST segments: + Normal ST segments ECG Findings: no PACs and no PVCs Comparison ECG Date: from (09/23/18) Change: no significant change Blood Pressure Blood Pressure Findings: Normal blood pressure Blood Pressure Disposition: did not require urgent referral MDM Narrative This patient comes in as described above he is a poor historian but has been having chest pain shortness of breath and arm pain. He does have multiple cardiac risk factors. He had extensive cardiac work-up done because of this and his symptoms. Additionally has had a cough and a subjective fever although he is afebrile here and he was COVID tested. He also does have an indurated area on his back which could be a skin infection there is no expressible pus at this point. IV asked established and multiple blood testing was obtained. Given that the patient will be admitted for chest pain I did order a rapid Covid test. The patient has a normal troponin and nonischemic EKG but does have multiple cardiac risk factors I do think would benefit from inpatient cardiac evaluation. White count is mildly elevated could be related to this lesion on his back. H is vital signs are stable otherwise and I doubt that he likely has sepsis. He has no significant electrolyte or metabolic abnormalities. His COVID testing on the rapid test was negative. I did discuss the case with Dr. Vasquez who will be admitted for further treatment and evaluation Continuous cardiac monitoring. An order was placed for continuous bus monitor. The patient was noted on my exam to have a heart rate of 95 and be normal sinus rhythm on the monitor. Impression & Plan Chest pain, SOB (shortness of breath), Back pain, Folliculitis, Lab test negative for COVID-19 virus Discharge Plan Visit Data *Final* Discharge Date/Time: 12/19/19 14:18 Chief Complaint: Chest Pain Stated Complaint: CHEST PAIN, BACK INFECTION ED Provider: Mars Morin Discharge Problem: Chest pain, SOB (shortness of breath), Back pain, Folliculitis, Lab test negative for COVID-19 virus Patient Disposition: Admitted As Inpatient Discharge Instructions Interventions: ED Discharge Assessment Last Done: 12/19/19 14:18 Discharge Problem: Chest pain Qualifiers: Chest pain type: unspecified Qualified Code(s): R07.9 - Chest pain, unspecified Back pain Qualifiers: Back pain location: thoracic back pain Chronicity: acute Back pain laterality: left Qualified Code(s): M54.6 - Pain in thoracic spine
[2019-12-19 10:41] LABS: Basophils # (auto) 0.01 K/uL (0-0.2); Basophils % (auto) 0.1 %; Eosinophils # (auto) 0.17 K/uL (0-0.5); Eosinophils % (auto) 1.3 %; Hematocrit (blood only) 39.6 % (42-52); Hemoglobin 13.8 g/dL (14.0-18.0); Immature Granulocytes # (auto) 0.04 K/uL (0.00-0.02); Immature Granulocytes % (auto) 0.3 %; Lymphocytes # (auto) 1.21 K/uL (1.2-3.4); Lymphocytes % (auto) 9.3 %; Mean Corpuscular Hemoglobin 33.9 pg (25-34); Mean Corpuscular Hgb Conc 34.8 g/dL (32-36); Mean Corpuscular Volume 97.3 fL (80-100); Mean Platelet Volume 10.7 fL (7.4-10.4); Monocytes # (auto) 1.05 K/uL (0.11-0.59); Neutrophils # (auto) 10.57 K/uL (1.4-6.5); Platelet Count 166 K/uL (130-400); RDW Coefficient of Variation 14.2 % (11.5-14.5); Red Blood Count 4.07 M/uL (4.7-6.1); White Blood Count 13.05 K/uL (4.8-10.8)
[2019-12-19 10:54] LABS: Partial Thromboplastin Ratio 1.1; Partial Thromboplastin Time 29.7 Seconds (21.0-31.0); Prothrombin Time 10.3 Seconds (9.0-12.0)
[2019-12-19 10:56] LABS: Alanine Aminotransferase 25 U/L (12-78); Albumin Level 2.9 gm/dl (3.4-5.0); Aspartate Aminotransferase 10 U/L (15-37); BUN Creatinine Ratio 9.7 (10-20); Blood Urea Nitrogen 12 mg/dl (7-18); Calcium 9.2 mg/dl (8.5-10.1); Carbon Dioxide 23 mmol/L (21-32); Chloride 97 mmol/L (98-107); Est GFR (African American) 77.8; Est GFR (Non-African American) 67.1; Glucose 294 mg/dl (70-99); Lipase 105 U/L (73-393); Sodium 129 mmol/L (136-145)
[2019-12-19 11:01] LABS: Albumin Globulin Ratio 0.7 (0.9-2); Alkaline Phosphatase 54 U/L (45-117); Bilirubin,Total 0.4 mg/dl (0.2-1); Globulin 4.3 gm/dl (2.5-4.0); Total Protein 7.2 gm/dl (6.4-8.2); Troponin I < 0.015 ng/ml (0-0.045)
--- NOTE | 2019-12-19 11:44 | XRay Report ---
XR chest 1V portable CLINICAL HISTORY: Chest Pain pain COMPARISON STUDY: 11/19/2018 FINDINGS: The bones soft tissues and hemidiaphragms are normal. The cardiomediastinal silhouette is n ormal. The lungs are clear. The pulmonary vasculature is normal. IMPRESSION: Negative chest. ACT 112: Negative or not required by law. The above report was generated using voice recognition software. It may contain grammatical, syntax or spelling errors. Electronically signed by: Augusto Squires M.D. 12/19/2019 11:42 AM
[2019-12-19] MEDS ORDERED: ALUMINUM/MAGNESIUM SUSP 18 ML, LIDOCAINE HCL VISCOUS 2% 6 ML, BARCODE IDENTIFIER 1 EA PO ONE (12:22)
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
[2019-12-19] MEDS ORDERED: GI COCKTAIL ED USE PO ONE (13:43)
[2019-12-19] MEDS ORDERED: ONDANSETRON INJ 2 MG/ML 2 ML VIAL IV PRN (15:11)
[2019-12-19] MEDS ORDERED: DEXTROSE 50% 50 ML SYRINGE IV PRN (15:11)
[2019-12-19] MEDS ORDERED: ACETAMINOPHEN 325 MG TAB PO PRN (15:11)
[2019-12-19] MEDS ORDERED: GLUCOSE 10 TABS/TUBE PO PRN (15:11)
[2019-12-19] MEDS ORDERED: GLUCOSE 40% GEL 15 GM TUBE PO PRN (15:11)
[2019-12-19] MEDS ORDERED: MAGNESIUM HYDROXIDE SUSP 30 ML UDC PO PRN (15:11)
[2019-12-19] MEDS ORDERED: CARBOHYDRATES FOR HYPOGLYCEMIA PO PRN (15:11)
[2019-12-19] MEDS ORDERED: DICLOFENAC SODIUM 75 MG TABCR PO PRN (15:11)
[2019-12-19] MEDS ORDERED: GLUCAGON FOR INJ 1 MG VIAL SQ PRN (15:11)
[2019-12-19] MEDS ORDERED: ALBUTEROL HFA 8 GM INHALER INH PRN (15:24)
--- NOTE | 2019-12-19 15:50 | Electrocardiogram Report ---
Test Reason : Blood Pressure : / mmHG Vent. Rate : 087 BPM Atrial Rate : 087 BPM P-R Int : 148 ms QRS Dur : 088 ms QT Int : 346 ms P-R-T Axes : 049 041 053 degrees QTc Int : 416 ms Normal sinus rhythm Normal ECG When compared with ECG of 23-SEP-2018 21:48, No significant change was found Confirmed by Parth Dixon ([id number]) on 12/19/2019 3:50:02 PM Referred By: Confirmed By:Parth Dixon
[2019-12-19] MEDS ORDERED: NICOTINE 21 MG/24 HR TDSY TD SCH (16:00)
[2019-12-19] MEDS: cephALEXin 250 MG CAP PO SCH ×2 (16:42→21:03)
[2019-12-19 16:52] LABS: Lyme Ab IgG w/WB Rflx Negative (Negative); Lyme Ab IgM w/WB Rflx Negative (Negative)
[2019-12-19] MEDS: INSULIN ASPART 100 UNITS/ML 3 ML PEN SC SCH ×2 (17:31→21:04)
[2019-12-19] MEDS ORDERED: TRIAMCINOLONE ACET 0.1% CR 15 GM TUBE TOP SCH (21:00)
[2019-12-19] MEDS ORDERED: TRAZODONE HCL 100 MG TAB PO SCH (21:00)
[2019-12-19] MEDS ORDERED: LOSARTAN POTASSIUM 50 MG TAB PO SCH (21:00)
[2019-12-19] MEDS ORDERED: PERPHENAZINE 2 MG TABLET PO SCH (21:00)
[2019-12-19] MEDS ORDERED: ATORVASTATIN 10 MG TAB PO SCH (21:00)
[2019-12-19] MEDS ORDERED: carBAMazepine 200 MG TABLET PO SCH (21:00)
[2019-12-20] MEDS ORDERED: ZOLPIDEM TARTRATE 5 MG TAB PO STA (00:16)
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
[2019-12-20] MEDS ORDERED: DOXYCYCLINE HYCLATE 100 MG in DEXTROSE 5% 100 ML IV SCH (00:30)
[2019-12-20 06:40] LABS: Basophils # (auto) 0.01 K/uL (0-0.2); Basophils % (auto) 0.1 %; Eosinophils # (auto) 0.17 K/uL (0-0.5); Eosinophils % (auto) 1.3 %; Hematocrit (blood only) 42.4 % (42-52); Hemoglobin 14.7 g/dL (14.0-18.0); Immature Granulocytes # (auto) 0.02 K/uL (0.00-0.02); Immature Granulocytes % (auto) 0.1 %; Lymphocytes # (auto) 1.13 K/uL (1.2-3.4); Lymphocytes % (auto) 8.4 %; Mean Corpuscular Hemoglobin 33.6 pg (25-34); Mean Corpuscular Hgb Conc 34.7 g/dL (32-36); Mean Platelet Volume 10.9 fL (7.4-10.4); Monocytes % (auto) 9.7 %; Neutrophils # (auto) 10.78 K/uL (1.4-6.5); Neutrophils % (auto) 80.4 %; Platelet Count 179 K/uL (130-400); Red Blood Count 4.37 M/uL (4.7-6.1); White Blood Count 13.41 K/uL (4.8-10.8)
[2019-12-20 07:24] LABS: Est GFR (African American) 82.9; Potassium 4.1 mmol/L (3.5-5.1)
[2019-12-20 07:25] LABS: BUN Creatinine Ratio 8.7 (10-20); Calcium 8.9 mg/dl (8.5-10.1); Est GFR (Non-African American) 71.5
[2019-12-20 07:36] LABS: Estimated Average Glucose 186 mg/dl; Hemoglobin A1C 8.1 % (4.5-5.6)
[2019-12-20] MEDS ORDERED: METHYLPHENIDATE HCL 10 MG TABLET PO SCH (09:00)
[2019-12-20] MEDS ORDERED: METFORMIN HCL ER 500 MG TABCR PO SCH (09:00)
[2019-12-20] MEDS ORDERED: hydroCHLOROthiazide 25 MG TAB PO SCH (09:00)
[2019-12-20] MEDS ORDERED: FLUTICASONE/VILANTEROL 100/25MCG 14 PUFFS/INHALER INH SCH (09:00)
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
== END 2019-12-20 09:44 | disposition left against medical advice (07) ==
LOC: 2N 09:14 → ED 09:14 → SUATTDRO 12:28 → 2N 14:18